=== PATIENT | male | born 1940 | race Caucasian/White ===

== ENCOUNTER 2022-08-28 15:11 | Emergency (ER) | payer OTHER ==
[~2022-08-28] VITALS: Ht 167.6 cm; Wt 65.0 kg
[2022-08-28] MEDS ORDERED: MAGNSOL PO (15:56)
[2022-08-28] MEDS ORDERED: MILK OF MAGNESIA 30ML SUSP PO ONE (16:00)
[2022-08-28] MEDS ORDERED: SODIENE35 RE (16:00)
[2022-08-28 18:59] VITALS: BP 118/86
== END 2022-08-28 19:01 | disposition home or self-care (01) ==
LOC: ER 15:11
DX: K59.00 Constipation, unspecified (principal); R11.2 Nausea with vomiting, unspecified; E11.9 Type 2 diabetes mellitus without complications; I10 Essential (primary) hypertension; I25.2 Old myocardial infarction
CPT/HCPCS: 74018